=== PATIENT | female | born 1990 | race Caucasian/White ===

== ENCOUNTER → 2018-06-17 | Outpatient (CLI) | payer OTHER | LOC: M.LAB 11:08 | DX: Z34.90 Encounter for supervision of normal pregnancy, unspecified, unspecified trimester (principal) ==

== ENCOUNTER → 2018-07-21 | Outpatient (CLI) | payer OTHER ==
[2018-07-21 10:43] LABS: ABSOLUTE EOSINOPHILS 0.1 thou/uL (0.0-0.7); ABSOLUTE LYMPHOCYTES 1.3 thou/uL (0.8-5.3); ABSOLUTE MONOCYTES 0.3 thou/uL (0.0-1.2); ABSOLUTE NEUTROPHILS 3.7 thou/uL (1.6-8.1); BASOPHILS 0.5 %; HEMATOCRIT 37.6 % (37.0-47.0); LYMPHOCYTES 23.7 %; MCH 31.6 pg (26.0-34.0); MCHC 34.4 g/dL (28.0-37.0); MCV 91.6 fL (80.0-100.0); MONOCYTES 4.9 %; MPV 8.1 fl. (7.2-11.1); NUCLEATED RBCS 0 /100WBC; PLATELET COUNT* 213 thou/uL (150-400); POLYS 69.9 %; RBC 4.11 mil/uL (4.20-5.00); RDW-CV 13.2 % (10.5-14.5); WBC 5.4 thou/uL (4.0-11.0)
[2018-07-22 05:09] LABS: RUBELLA IgG ANTIBODY* 4.53 index (Immune >0.99)
[2018-07-22 07:05] LABS: HEPATITIS B SURFACE AG Negative (Negative)
== END ==
LOC: M.LAB 10:10
DX: Z34.90 Encounter for supervision of normal pregnancy, unspecified, unspecified trimester (principal)